=== PATIENT | male | born 1995 | race Two or more races ===

== ENCOUNTER 2017-12-16 17:57 | Emergency (ER) | payer OTHER ==
[2017-12-16 18:35] VITALS: BP 138/81
--- NOTE | 2017-12-16 18:51 | UC ---
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 he has ongoing pain in his low back. no self tx. - History of Current Complaint Chief Complaint: UCBackPain Stated Complaint: BACK PAIN S/P FALL-WC Time Seen by Provider: 12/16/17 18:41 Hx Obtained From: Patient, Family/Surgical Assistant Certified - Geovani Cook, Theoretical Physicist - Geovani Cook Onset/Duration: Sudden Onset Pain Intensity: 6 Aggravating Factor(s): Bending Alleviating Factor(s): Rest Associated Signs And Symptoms: Negative: Fever, Weakness, Numbness, Tingling, Abdominal Pain, Flank Pain, Bladder Incontinence, Bowel Incontinence - Allergies/Home Medications Allergies/Adverse Reactions: Allergies Allergy/AdvReac Type Severity Reaction Status Date / Time No Known Allergies Allergy Verified 12/16/17 18:27 Home Medications: Home Medications Blood Pressure Med 1 tab DAILY 12/16/17 [History Confirmed 12/16/17] PMH/Surg Hx/FS Hx/Imm Hx Cardiovascular History: Hypertension - Surgical History Surgical History: None - Family History Known Family History: Positive: None - Social History Occupation: Employed Full-time Alcohol Use: None Substance Use Type: None Smoking Status (MU): Never Smoked Tobacco - Immunization History Vaccination Up to Date: Yes Review of Systems Constitutional: Negative Skin: Negative Eyes: Negative ENT: Negative Respiratory: Negative Cardiovascular: Negative Gastrointestinal: Negative Genitourinary: Negative Motor: Negative Neurovascular: Negative Musculoskeletal: Other: - low back pain Neurological: Negative Psychological: Negative Is Patient Immunocompromised?: No All Other Systems Reviewed And Are Negative: Yes Physical Exam Triage Information Reviewed: Yes Appearance: Well-Appearing Vital Signs: Initial Vital Signs Temp 97.8 F 12/16/17 18:29 Pulse 52 12/16/17 18:29 Resp 16 12/16/17 18:29 BP 138/81 12/16/17 18:29 Pulse Ox 100 12/16/17 18:29 Eyes: Positive: Conjunctiva Clear ENT: Positive: Normal ENT inspection Neck: Positive: Supple, Nontender, No Lymphadenopathy Respiratory: Positive: Lungs clear, Normal breath sounds Cardiovascular: Positive: RRR, No Murmur Abdomen Description: Positive: Nontender, No Organomegaly, Soft Bowel Sounds: Positive: Present Musculoskeletal: Positive: Other: - Cervical, thoracic and lumbar spine are without gross deformity swelling or discoloration. patient with tenderness to palpation in his lumbar region. Range of motion is intact throughout he complains of pain with active range of motion and lumbar region. No saddle anesthesia. 5 out of 5 strength and 2+ reflexes 4. Negative straight leg raise 2. Normal steady gait. Neurological: Positive: Alert Psychological: Positive: Age Appropriate Behavior Skin Exam: Normal Diagnostics - Radiology No standard instances Radiology Interpretation Completed By: Radiologist - No evidence of fracture or subluxation LS spine Back Pain Course/Dx - Course Course Of Treatment: No concern for infection or acute abdomen. No concern for cauda equina. Lumbar spine x-rays=no fx or dislocation - Differential Dx/Diagnosis Provider Diagnoses: acute low back pain Discharge - Sign-Out/Discharge Documenting (check all that apply): Patient Departure - Discharge Plan Condition: Stable Disposition: HOME Prescriptions: Cyclobenzaprine TAB* [Flexeril 10 MG TAB*] 10 mg PO TID #10 tab Naproxen [Naprosyn 500 mg tab] 500 mg PO BID #10 tablet Patient Education Materials: Acute Low Back Pain (ED) Forms: *Work Release Additional Instructions: FOLLOW UP IMMIGRATION MEDICINE THIS FRIDAY(2 DAYS). - Billing Disposition and Condition Condition: STABLE Disposition: Home
[2017-12-16] MEDS ORDERED: Ibuprofen ADULT LIQ* 600 MG/30 ML UDC PO ONE (18:53)
[2017-12-16] MEDS ORDERED: Cyclobenzaprine TAB* 10 MG PO ONE (18:53)
--- NOTE | 2017-12-16 19:24 | RAD ---
INDICATION: Low back pain after a fall COMPARISON: None. TECHNIQUE: 2 views of the lumbar spine were obtained. FINDINGS: The vertebra are in normal alignment. No fracture is seen. Disc spaces appear maintained. IMPRESSION: No evidence of fracture or subluxation.
== END 2017-12-16 19:45 | disposition home or self-care (01) ==
LOC: UCCORT 17:57
DX: M54.5 Low back pain (principal); I10 Essential (primary) hypertension; Z79.899 Other long term (current) drug therapy
CPT/HCPCS: 72100; 99202; A9270-GY; G0463

== ENCOUNTER 2018-12-15 11:54 | Emergency (ER) | payer OTHER ==
[2018-12-15 12:45] VITALS: BP 143/77
--- NOTE | 2018-12-15 14:20 | UC ---
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 he is c/o ongoing pain and swelling along the thumb side of the L wrist. pt's career services manager Isai Cook whom is fluent in Fijian interpreted for him. - History of Current Complaint Chief Complaint: UCUpperExtremity Stated Complaint: W/C LEFT ARM INJURY Time Seen by Provider: 12/15/18 14:10 Hx Obtained From: Patient Onset/Duration: Sudden Onset Timing: Constant Pain Intensity: 7 Aggravating: movement Associated Signs & Symptoms: Negative: Fever, Weakness - Allergy/Home Medications Allergies/Adverse Reactions: Allergies Allergy/AdvReac Type Severity Reaction Status Date / Time No Known Allergies Allergy Verified 12/15/18 12:38 Home Medications: Home Medications NK [No Home Medications Reported] 12/15/18 [History Confirmed 12/15/18] PMH/Surg Hx/FS Hx/Imm Hx Previously Healthy: Yes - Surgical History Surgical History: None - Family History Known Family History: Positive: None - Social History Occupation: Employed Full-time Alcohol Use: None Substance Use Type: None Smoking Status (MU): Never Smoked Tobacco - Immunization History Vaccination Up to Date: Yes Review of Systems All Other Systems Reviewed And Are Negative: No Constitutional: Negative: Fever Skin: Negative: Rash Musculoskeletal: Positive: Edema - L wrist. Negative: Decreased ROM Neurological: Negative: Weakness, Paresthesia, Numbness Physical Exam Triage Information Reviewed: Yes Appearance: Well-Appearing Vital Signs: Initial Vital Signs Temp 98.2 F 12/15/18 12:39 Pulse 52 12/15/18 12:39 Resp 15 12/15/18 12:39 BP 143/77 12/15/18 12:39 Pulse Ox 100 12/15/18 12:39 Vital Signs Reviewed: Yes Eyes: Positive: Conjunctiva Clear Cardiovascular: Positive: RRR Musculoskeletal: Positive: Other: - LUE: shoulder, elbow are non tender. Radial side of wrist with mild swelling and tenderness along the extensor tendon of thumb. Resy of wrist is non tender. ROm is intact. Hand non tender and has full s/v/m function. + Finklestein test. Neurological: Positive: Alert Psychological: Positive: Age Appropriate Behavior Skin Exam: Normal Skin: Negative: Rashes Diagnostics - Radiology No standard instances Radiology Interpretation Completed By: Radiologist - MPRESSION: No fracture or traumatic malalignment of the left wrist. Course/Dx - Diagnoses Provider Diagnosis: Tenosynovitis, de Quervain Discharge - Sign-Out/Discharge Documenting (check all that apply): Patient Departure All imaging exams completed and their final reports reviewed: Yes - Discharge Plan Condition: Stable Disposition: HOME Patient Education Materials: De Quervain Disease (ED) Referrals: Shahana Santos MD [Medical Doctor] - 7 Days Additional Instructions: TAKE 600MG ADVIL EVERY 8 HOURS FOR 5 DAYS THEN NEEDED. USE THUMB SPLINT UNTIL CLEARED. - Billing Disposition and Condition Condition: STABLE Disposition: Home
[2018-12-15] MEDS ORDERED: Ibuprofen ADULT LIQ* 600 MG/30 ML UDC PO ONE (14:21)
== END 2018-12-15 15:15 | disposition home or self-care (01) ==
LOC: UCCORT 11:54
DX: M65.4 Radial styloid tenosynovitis [de Quervain] (principal)
CPT/HCPCS: 99213; A9270-GY; G0463